=== PATIENT | female | born 1980 | race Caucasian/White ===

== ENCOUNTER 2017-02-14 14:39 | Emergency (ER) | payer OTHER ==
[~2017-02-14] VITALS: Ht 167.6 cm; Wt 77.1 kg
--- NOTE | 2017-02-14 15:29 | NUR ---
PT LEFT THE ER, DID NOT WANT TO WAIT ANYMORE FOR THE DOCTOR." I AM TIRED WAITING, I AM LEAVING!" MD LO WAS NOTIFIED. PT AMBULATED W/O DIFF/TOOK ALL BELONGINGS.
== END 2017-02-14 15:29 | disposition left against medical advice (07) ==
LOC: ER 14:41
DX: R21 Rash and other nonspecific skin eruption (principal); Z53.21 Procedure and treatment not carried out due to patient leaving prior to being seen by health care provider
CPT/HCPCS: A4663